=== PATIENT | male | born 1940 | race Caucasian/White ===

== ENCOUNTER 2017-03-16 10:19 | Emergency (ER) | payer MEDICARE, OTHER ==
[2017-03-16] MEDS ORDERED: traMADol HCl 50 MG TAB ONE (11:27)
--- NOTE | 2017-03-16 11:28 | CT ---
CT CHEST WITHOUT CONTRAST: History Chest pain, trauma. FINDINGS: There are acute left rib fractures involving the 5th, 6th, 7th, 8th, and 10th ribs. Old left 8th, 9 th, 10th, and 11th rib fractures are present. No pneumothorax is seen. There is a small left hemot horax with adjacent consolidation/contusion/atelectatic change. There is subsegmental atelectasis i n the right posteromedial lung base. Degenerative changes are present in the thoracic spine without compression fracture or subluxation. The sternum is intact. There are vascular calcifications without evidence of aneurysmal dilatation of the thoracic aorta. Absence of IV contrast reduces the sensitivity of exam, particularly for evaluation of mediastinal, hilar, and vascular structures. No definite mediastinal hematoma is seen. Upper abdominal tomograms demonstrate multiple cysts in the visualized portions of the liver, nonobs tructing 7 mm left renal calculus, and colonic diverticulosis. IMPRESSION: Acute and remote left rib fractures with small left hemothorax and adjacent contusions/atelectatic c hanges. POS: [facility]
== END 2017-03-16 11:36 | disposition home or self-care (01) ==
LOC: BURERS 10:19
DX: S22.39XA Fracture of one rib, unspecified side, initial encounter for closed fracture (principal); E78.5 Hyperlipidemia, unspecified; I10 Essential (primary) hypertension; V89.2XXA Person injured in unspecified motor-vehicle accident, traffic, initial encounter
CPT/HCPCS: 71250

== ENCOUNTER 2019-03-06 20:37 | Emergency (ER) | payer MEDICARE ==
[2019-03-06 21:44] LABS: #Basophils 0.1 thou/uL (0.0-0.2); #Lymphocytes 1.4 thou/uL (1.20-3.40); #Neutrophils 9.1 thou/uL (1.40-6.50); %Basophils 0.6 % (0.0-1.0); %Eosinophils 0.4 % (0.0-10.0); %Lymphocytes 11.9 % (21.0-51.0); %Monocytes 8.6 % (0.0-10.0); %Neutrophils 78.5 % (42.0-75.0); Hemoglobin 16.8 g/dL (14.0-18.0); Mean Corpuscular HGB CONC 33.3 g/dL (32.0-36.0); Mean Corpuscular Hemoglobin 31.5 pg (27.0-31.0); Mean Corpuscular Volume 94.7 fL (78.0-98.0); Mean Platelet Volume 6.3 fL (7.4-10.4); Platelet Count 255 thou/uL (130-400); RBC Distribution Width 11.8 % (11.5-14.5); Red Blood Cell (RBC) Count 5.31 mill/uL (4.70-6.10); White Blood Cell (WBC) Count 11.6 thou/uL (4.8-10.8)
[2019-03-06] MEDS ORDERED: Piperacillin/Tazobactam 4.5 GM VIAL ONE (21:45)
[2019-03-06] MEDS ORDERED: Adacel (T-DAP) 0.5 ML SYRINGE ONE (21:45)
[2019-03-06 21:55] LABS: Anion Gap 15 mmol/L (10-20); BUN (Urea Nitrogen) 28 mg/dL (8.4-25.7); Calc. Creatinine Clearance 0 mL/min (70-130); Carbon Dioxide 24 mmol/L (23-31); Chloride 106 mmol/L (98-107); Estimated GFR-MDRD 54; Glucose 147 mg/dL (83-110); Potassium 4.1 mmol/L (3.5-5.1); Sodium 141 mmol/L (136-145)
--- NOTE | 2019-03-06 22:50 | RAD ---
PORTABLE CHEST 03/06/19 An AP portable film at 2109 is compared with an 02/03/15 study. The heart is normal in size for an AP projection. Prior rib fractures are noted in multiple left ribs . There is probably an old fracture of the right fifth rib anteriorly and perhaps others. The lungs a re currently clear. There are no effusions. IMPRESSION: Old changes but no definite acute findings. POS: HOME
--- NOTE | 2019-03-06 22:52 | RAD ---
LEFT LEG FOUR VIEWS: 03/06/19 Various views were obtained, mainly focused on the upper half of the leg. There is a nondisplaced fra cture of the proximal fibular shaft. The tibia appears intact. Degenerative changes are seen in the knee joint. No large joint effusion was seen at the knee. Arterial calcifications are evident. IMPRESSION: Nondisplaced fracture of the proximal fibular shaft. Code T POS: HOME
== END 2019-03-06 22:15 | disposition short-term general hospital (02) ==
LOC: BURERS 20:37
DX: S82.832B Other fracture of upper and lower end of left fibula, initial encounter for open fracture type I or II (principal); I10 Essential (primary) hypertension; Z79.899 Other long term (current) drug therapy; Z79.82 Long term (current) use of aspirin; W23.0XXA Caught, crushed, jammed, or pinched between moving objects, initial encounter
CPT/HCPCS: 29505; 71045; 80048; 84484; 85025; 90471; 90715; 93005; 96374; J2543

== ENCOUNTER 2020-01-04 09:13 | Outpatient (CLI) | payer MEDICARE ==
--- NOTE | 2020-01-04 14:57 | CT ---
CT OF THE BRAIN WITHOUT CONTRAST: Date: 01/04/2020 Comparison is made with the prior study of 02/03/2015. Generalized atrophy and mild chronic ischemic changes are present. They have advanced slightly since the 2015 scan. No intracranial bleeding, mass, or sign of stroke found. No edema seen. Skull appears normal and the visible paranasal sinuses are clear. IMPRESSION: No acute traumatic findings. POS: HOME
== END 2020-01-04 09:14 | disposition home or self-care (01) ==
LOC: BURCT 09:13
PROVIDERS: ATTEND Psychiatry & Neurology Neurology
DX: G31.1 Senile degeneration of brain, not elsewhere classified (principal)
CPT/HCPCS: 70450

== ENCOUNTER 2020-01-08 12:09 | Emergency (ER) | payer MEDICARE ==
[~2020-01-08 12:09] MED LIST: Iopamidol 370 76% 100 ML VIAL ONE
[2020-01-08 12:42] LABS: PTT 27.6 sec (22.9-36.1); Prothrombin Time 12.8 sec (12.0-14.7)
[2020-01-08 12:50] LABS: #Lymphocytes 1.4 thou/uL (1.20-3.40); #Monocytes 0.4 thou/uL (0.11-0.59); #Neutrophils 4.6 thou/uL (1.40-6.50); %Basophils 0.6 % (0.0-1.0); %Eosinophils 0.5 % (0.0-10.0); %Lymphocytes 22.1 % (21.0-51.0); %Monocytes 6.6 % (0.0-10.0); %Neutrophils 70.2 % (42.0-75.0); Hemoglobin 15.3 g/dL (14.0-18.0); Mean Corpuscular HGB CONC 31.8 g/dL (32.0-36.0); Mean Corpuscular Hemoglobin 30.9 pg (27.0-31.0); Mean Corpuscular Volume 97.1 fL (78.0-98.0); Mean Platelet Volume 6.4 fL (7.4-10.4); Platelet Count 216 thou/uL (130-400); RBC Distribution Width 11.9 % (11.5-14.5); Red Blood Cell (RBC) Count 4.94 mill/uL (4.70-6.10); White Blood Cell (WBC) Count 6.5 thou/uL (4.8-10.8)
[2020-01-08 12:52] LABS: ALT (SGPT) 37 U/L (8-55); AST (SGOT) 24 U/L (5-34); Albumin 4.1 g/dL (3.4-4.8); Alkaline Phosphatase 37 U/L (40-110); Anion Gap 11 mmol/L (10-20); BUN (Urea Nitrogen) 25 mg/dL (8.4-25.7); Bilirubin, Total 0.7 mg/dL (0.2-1.2); Calc. Creatinine Clearance 0 mL/min (70-130); Calcium 9.7 mg/dL (7.8-10.44); Carbon Dioxide 29 mmol/L (23-31); Chloride 103 mmol/L (98-107); Estimated GFR-MDRD 61; Globulin 2.8 g/dL (2.4-3.5); Glucose 149 mg/dL (83-110); Potassium 4.1 mmol/L (3.5-5.1); Protein, Total 6.9 g/dL (5.8-8.1); Sodium 139 mmol/L (136-145)
[2020-01-08] MEDS ORDERED: Meclizine HCl 25 MG TAB ONE (13:02)
[2020-01-08] MEDS ORDERED: Ondansetron ODT 4 MG TAB ONE ×2 (13:14→15:22)
[2020-01-08 14:00] LABS: Bilirubin Negative (Negative); Blood, Urine Negative (Negative); Clarity Clear (Clear); Glucose, Urine (Dipstick) Negative (Negative); Ketone, Urine Negative (Negative); Leukocyte Negative (Negative); Nitrite Negative (Negative); Protein, Urine (Dipstick) Negative (Neg-Trace); Specific Gravity, Urine 1.025 (1.005-1.030); Urobilinogen 0.2 mg/dL (Less than 2); pH, Urine 5.5 (5.0-9.0)
[2020-01-08] MEDS ORDERED: diphenhydrAMINE 12.5 MG/5 ML UDCUP ONE (14:01)
[2020-01-08] MEDS ORDERED: diphenhydrAMINE 50 MG/ML VIAL ONE (14:02)
--- NOTE | 2020-01-08 15:23 | CT ---
EXAM: CT angiogram head and neck with IV contrast and 3-D reconstructions PROVIDED CLINICAL HISTORY: Dizziness with nausea and vomiting. COMPARISON: Noncontrast CT head on 01/08/2020 at 1311 hours. FINDINGS: Vascular calcifications are seen in the aortic arch and at the origin of the great vessels. There is a normal arrangement of the great vessels at the aortic arch which are patent. The origin of the right common carotid artery as well as the right subclavian artery are obscured due to dense contrast within the veins. Remainder of the right common carotid artery is patent. The left common carotid artery as well as left subclavian artery are patent. Vascular calcifications are seen at the left carotid artery bifurcation, the left internal and rfid systems architect al carotid artery are patent. Dense vascular calcifications are also seen involving the distal right common carotid artery as well as involving the origin of the right internal carotid artery. Den se vascular calcification in the distal right common carotid artery and involving the origin of the internal carotid artery precludes evaluation of the origin of the right internal carotid artery, and the degree of narrowing in this region is unable to be accurately assessed. However, there is likely moderate or severe degree of narrowing. The right vertebral artery is patent and dominant. The left vertebral artery is very small in caliber , and there is suggestion of short segment occlusion of the left vertebral artery at the C1-2 level. The basilar artery is small in caliber. There are type origins of the bilateral posterior cereb ral arteries which appear patent. The bilateral anterior cerebral arteries are patent. Anterior communicating artery is visualized and patent. There is a focal narrowing involving the distal aspect of the A1 segment of the right anterior cerebral artery, and the A1 segment right anterior cerebral artery is smaller in size compar ed to the left. Bilateral middle cerebral arteries are patent. There is no branch occlusion seen. No aneurysm is seen within the limitations of the technique of this exam. Visualized upper lung zones are clear. There are hypodense nodules seen scattered throughout each lobe of the thyroid gland with largest nod ule in the right lobe of thyroid gland measuring 1.2 cm. These nodules are unable to be further characterized on this examination but did appear to be present on a prior CT thorax in 2017. Degenerative changes are seen in the cervical spine. Mucosal thickening as well as mucous retention c ysts are seen in the left maxillary antrum. [place] lenses are not visualized. There are mastoid effusions seen on the left. IMPRESSION: 1. Dense atherosclerotic vascular calcification at the origin the right internal carotid artery, and the degree of narrowing at this level cannot be accurately assessed; although, there is presumably moderate to severe degree of narrowing at the origin of the right internal carotid artery. 2. Left internal carotid artery is patent. 3. 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 Right vertebral artery is patent. 4. No significant focal narrowing or branch occlusion is seen involving the [place] of [place] or poste rior circulation.
--- NOTE | 2020-01-08 16:56 | CT ---
CT OF THE BRAIN 01/08/20 COMPARISON: Comparison is made with the 01/03 study. As before, the ventricles are normal in size for age and atrophy. Chronic ischemic changes are seen throughout the brain and appear little different. There was no sign of acute stroke, though MRI would be more sensitive to such. There is no bleeding, mass or edema. A retention cyst is noted in the cedric or of the left maxillary sinus. A small amount of fluid is seen in some of the left mastoid air cells near the mastoid tip. The skull itself appears intact. IMPRESSION: Atrophy and chronic ischemic changes with no definite acute findings compared to the prior study. Report called to Sabrina in ER at 1322 on 01/08/20. POS: HOME
== END 2020-01-08 16:59 | disposition short-term general hospital (02) ==
LOC: BURERS 12:09
DX: I65.02 Occlusion and stenosis of left vertebral artery (principal); R11.2 Nausea with vomiting, unspecified; I10 Essential (primary) hypertension; Z79.82 Long term (current) use of aspirin; Z79.899 Other long term (current) drug therapy
CPT/HCPCS: 0042T; 70450; 70496; 80053; 81003; 84484; 85025; 85610; 85730; 93005; 94760; 96361; 96374; 99285; J1200; Q0162; Q0163; Q9967

== ENCOUNTER 2020-12-22 20:58 | Emergency (ER) | payer MEDICARE ==
[2020-12-22 21:24] LABS: #Basophils 0.1 thou/uL (0.0-0.2); #Eosinphils 0.2 thou/uL (0.0-0.7); #Lymphocytes 2.2 thou/uL (1.20-3.40); #Monocytes 0.6 thou/uL (0.11-0.59); #Neutrophils 2.3 thou/uL (1.40-6.50); %Basophils 1.2 % (0.0-1.0); %Eosinophils 3.1 % (0.0-10.0); %Lymphocytes 41.5 % (21.0-51.0); %Monocytes 11.7 % (0.0-10.0); %Neutrophils 42.6 % (42.0-75.0); Hemoglobin 15.8 g/dL (14.0-18.0); Mean Corpuscular HGB CONC 32.8 g/dL (32.0-36.0); Mean Corpuscular Volume 97.5 fL (78.0-98.0); Mean Platelet Volume 6.6 fL (7.4-10.4); Platelet Count 228 thou/uL (130-400); RBC Distribution Width 11.7 % (11.5-14.5); Red Blood Cell (RBC) Count 4.94 mill/uL (4.70-6.10); White Blood Cell (WBC) Count 5.4 thou/uL (4.8-10.8)
[2020-12-22 21:33] LABS: INR-International Normal Ratio 0.9; Prothrombin Time 12.6 sec (12.0-14.7)
[2020-12-22 21:34] LABS: PTT 31.1 sec (22.9-36.1)
[2020-12-22 21:43] LABS: ALT (SGPT) 23 U/L (8-55); AST (SGOT) 25 U/L (5-34); Alkaline Phosphatase 35 U/L (40-110); Anion Gap 16 mmol/L (10-20); BUN (Urea Nitrogen) 23 mg/dL (8.4-25.7); Bilirubin, Total 0.4 mg/dL (0.2-1.2); CK (CPK) 83 U/L (30-200); Calc. Creatinine Clearance 0 mL/min (70-130); Calcium 9.6 mg/dL (7.8-10.44); Carbon Dioxide 24 mmol/L (23-31); Chloride 106 mmol/L (98-107); Globulin 2.8 g/dL (2.4-3.5); Glucose 104 mg/dL (83-110); Potassium 3.9 mmol/L (3.5-5.1); Protein, Total 6.8 g/dL (5.8-8.1); Sodium 142 mmol/L (136-145)
== END 2020-12-22 21:56 | disposition short-term general hospital (02) ==
LOC: BURERS 20:58
DX: I63.9 Cerebral infarction, unspecified (principal); I10 Essential (primary) hypertension; Z79.82 Long term (current) use of aspirin; Z79.899 Other long term (current) drug therapy
CPT/HCPCS: 36415; 36416; 70450; 70496; 80053; 82550; 84484; 85025; 85610; 85730; 93005; Q9967

== ENCOUNTER 2021-02-26 05:14 | Emergency (ER) | payer MEDICARE ==
[2021-02-26 06:20] LABS: #Basophils 0.1 thou/uL (0.0-0.2); #Eosinphils 0.2 thou/uL (0.0-0.7); #Lymphocytes 1.9 thou/uL (1.20-3.40); #Monocytes 0.5 thou/uL (0.11-0.59); #Neutrophils 2.6 thou/uL (1.40-6.50); %Basophils 0.9 % (0.0-1.0); %Eosinophils 4.4 % (0.0-10.0); %Lymphocytes 35.8 % (21.0-51.0); %Monocytes 10.2 % (0.0-10.0); %Neutrophils 48.7 % (42.0-75.0); Hemoglobin 14.3 g/dL (14.0-18.0); Mean Corpuscular HGB CONC 33.5 g/dL (32.0-36.0); Mean Corpuscular Hemoglobin 31.7 pg (27.0-31.0); Mean Corpuscular Volume 94.8 fL (78.0-98.0); Mean Platelet Volume 6.4 fL (7.4-10.4); Platelet Count 219 thou/uL (130-400); RBC Distribution Width 12.9 % (11.5-14.5); White Blood Cell (WBC) Count 5.3 thou/uL (4.8-10.8)
[2021-02-26 06:21] LABS: ALT (SGPT) 21 U/L (8-55); AST (SGOT) 20 U/L (5-34); Albumin 3.7 g/dL (3.4-4.8); Alkaline Phosphatase 38 U/L (40-110); Anion Gap 10 mmol/L (10-20); BUN (Urea Nitrogen) 26 mg/dL (8.4-25.7); Bilirubin, Total 0.8 mg/dL (0.2-1.2); Calc. Creatinine Clearance 0 mL/min (70-130); Calcium 9.5 mg/dL (7.8-10.44); Carbon Dioxide 29 mmol/L (23-31); Chloride 107 mmol/L (98-107); Globulin 2.7 g/dL (2.4-3.5); Glucose 107 mg/dL (83-110); Protein, Total 6.4 g/dL (5.8-8.1); Sodium 142 mmol/L (136-145)
[2021-02-26 06:42] LABS: Prothrombin Time 13.7 sec (12.0-14.7)
[2021-02-26 06:46] LABS: Bilirubin Negative (Negative); Blood, Urine Large (Negative); Clarity Clear (Clear); Glucose, Urine (Dipstick) Negative (Negative); Ketone, Urine Negative (Negative); Leukocyte Negative (Negative); Nitrite Negative (Negative); Protein, Urine (Dipstick) 30 mg/dL (Neg-Trace); Urobilinogen 0.2 mg/dL (Less than 2); pH, Urine 5.5 (5.0-9.0)
[2021-02-26 06:56] LABS: Specific Gravity, Urine 1.026 (1.002-1.036)
[2021-02-26 06:59] LABS: Bacteria/HPF 1+ HPF (None Seen); Squamous Epithelial 0-3 HPF (0-3); WBC/HPF 0-3 HPF (0-3)
[2021-02-26] MEDS ORDERED: Iopamidol 370 76% 100 ML VIAL ONE (16:05)
== END 2021-02-26 08:08 | disposition home or self-care (01) ==
LOC: BURERS 05:14
DX: R31.0 Gross hematuria (principal); M54.5 Low back pain; I10 Essential (primary) hypertension; E78.5 Hyperlipidemia, unspecified; Z86.73 Personal history of transient ischemic attack (TIA), and cerebral infarction without residual deficits; Z79.82 Long term (current) use of aspirin; Z79.899 Other long term (current) drug therapy
CPT/HCPCS: 36415; 74177; 80053; 80307; 81003; 81015; 82274; 83605; 84484; 85025; 85610; 85730; 87086; Q9967

== ENCOUNTER 2021-03-30 18:03 | Emergency (ER) | payer OTHER, MEDICARE ==
[2021-03-30] MEDS ORDERED: HYDROcodone/Acetaminophen 5/325 mg Tablet ONE (19:02)
== END 2021-03-30 19:26 | disposition home or self-care (01) ==
LOC: BURERS 18:03
DX: S32.019A Unspecified fracture of first lumbar vertebra, initial encounter for closed fracture (principal); S32.029A Unspecified fracture of second lumbar vertebra, initial encounter for closed fracture; S32.039A Unspecified fracture of third lumbar vertebra, initial encounter for closed fracture; S32.049A Unspecified fracture of fourth lumbar vertebra, initial encounter for closed fracture; S80.11XA Contusion of right lower leg, initial encounter; W01.10XA Fall on same level from slipping, tripping and stumbling with subsequent striking against unspecified object, initial encounter; Z79.899 Other long term (current) drug therapy; Z79.82 Long term (current) use of aspirin; I10 Essential (primary) hypertension; E78.5 Hyperlipidemia, unspecified; Z86.73 Personal history of transient ischemic attack (TIA), and cerebral infarction without residual deficits
CPT/HCPCS: 72131

== ENCOUNTER 2021-04-07 16:57 | Inpatient (IN) | payer MEDICARE ==
[2021-04-08] MEDS: traMADol HCl 50 MG TAB PO PRN (06:37)
[2021-04-08] MEDS ORDERED: Finasteride 5 MG TAB PO SCH (09:00)
[2021-04-08] MEDS ORDERED: Folic Acid 1 MG TAB PO SCH (09:00)
[2021-04-08] MEDS ORDERED: Polyethylene Glycol 3350 17 GM Packet PO SCH (09:00)
[2021-04-08] MEDS ORDERED: [UNRECOGNIZED DRUG - OTHER] IM SCH (09:00)
[2021-04-08] MEDS ORDERED: Aspirin 81 mg Enteric Coated Tablet PO SCH (09:00)
[2021-04-08] MEDS ORDERED: Non-Formulary Item 1 EACH (Mecobalamin [B12 Active] 1,000 MCG Tab.Chew) PO SCH (09:00)
[2021-04-08] MEDS ORDERED: TESTOSTERONE CYPIONATE IM SCH (09:00)
[2021-04-08] MEDS ORDERED: Non-Formulary Item 1 EACH (Vitamin B Complex [B Complex] 1 TABLET Tablet) PO SCH (09:00)
[2021-04-08] MEDS ORDERED: [UNRECOGNIZED DRUG - OTHER] PO SCH (09:00)
[2021-04-08 10:00] LABS: #Basophils 0.1 thou/uL (0.0-0.2); #Eosinphils 0.3 thou/uL (0.0-0.7); #Lymphocytes 1.2 thou/uL (1.20-3.40); #Monocytes 0.7 thou/uL (0.11-0.59); #Neutrophils 4.3 thou/uL (1.40-6.50); %Basophils 0.9 % (0.0-1.0); %Eosinophils 4.4 % (0.0-10.0); %Monocytes 10.7 % (0.0-10.0); Hemoglobin 11.4 g/dL (14.0-18.0); Mean Corpuscular HGB CONC 32.8 g/dL (32.0-36.0); Mean Corpuscular Hemoglobin 31.3 pg (27.0-31.0); Mean Corpuscular Volume 95.5 fL (78.0-98.0); Mean Platelet Volume 5.9 fL (7.4-10.4); Platelet Count 248 thou/uL (130-400); RBC Distribution Width 11.6 % (11.5-14.5); Red Blood Cell (RBC) Count 3.63 mill/uL (4.70-6.10); White Blood Cell (WBC) Count 6.5 thou/uL (4.8-10.8)
[2021-04-08 10:16] LABS: ALT (SGPT) 19 U/L (8-55); AST (SGOT) 16 U/L (5-34); Albumin 3.2 g/dL (3.4-4.8); Alkaline Phosphatase 42 U/L (40-110); Anion Gap 12 mmol/L (10-20); BUN (Urea Nitrogen) 22 mg/dL (8.4-25.7); Bilirubin, Total 0.6 mg/dL (0.2-1.2); Calc. Creatinine Clearance 0 mL/min (70-130); Calcium 9.3 mg/dL (7.8-10.44); Carbon Dioxide 24 mmol/L (23-31); Chloride 106 mmol/L (98-107); Globulin 2.6 g/dL (2.4-3.5); Glucose 113 mg/dL (83-110); Potassium 4.4 mmol/L (3.5-5.1); Protein, Total 5.8 g/dL (5.8-8.1); Sodium 138 mmol/L (136-145)
[2021-04-08] MEDS: Lisinopril 20 MG TAB PO SCH ×2 (10:39→20:29)
[2021-04-08] MEDS: Finasteride 5 MG TAB PO SCH (10:40)
[2021-04-08] MEDS: Multivit, Therapeutic 1 TAB PO SCH (10:40)
[2021-04-08] MEDS: Vit A,C & E/Lutein/Minerals Tablet PO SCH (10:41)
[2021-04-08] MEDS: Docusate 100 MG CAP PO SCH (10:41)
[2021-04-08] MEDS: Folic Acid 1 MG TAB PO SCH (10:42)
[2021-04-08] MEDS: Aspirin 81 mg Enteric Coated Tablet PO SCH (10:43)
[2021-04-08] MEDS: Cyanocobalamin (Vitamin B-12) 1,000 MCG TAB PO SCH (10:43)
[2021-04-08] MEDS: Tamsulosin HCl 0.4 MG CAP PO SCH ×2 (10:44→20:29)
[2021-04-08] MEDS: Stress 600 With Zinc 1 TAB PO SCH (10:44)
[2021-04-08] MEDS: Lidocaine 5% Patch TD SCH (10:45)
[2021-04-08] MEDS: Polyethylene Glycol 3350 17 GM Packet PO SCH (10:46)
[2021-04-08] MEDS ORDERED: FLU VACC QS2021-22(65YR UP)/PF 240 MCG/0.7 ML SYRINGE IM ONE (12:00)
[2021-04-08] MEDS: TESTOSTERONE CYPIONATE IM SCH (14:55)
[2021-04-08] MEDS: Rosuvastatin 10 MG TAB PO SCH (20:28)
[2021-04-08] MEDS: Ketotifen Fumarate 0.025% Ophth Soln 5 ml Bottle EA EYE SCH (20:29)
[2021-04-08] MEDS ORDERED: Non-Formulary Item 1 EACH (Rosuvastatin [Crestor] 20 MG Tab) PO SCH (21:00)
[2021-04-08] MEDS: Transdermal Patch Removal TOP SCH (23:34)
[2021-04-09 06:03] VITALS: BMI 25.8
[2021-04-09] MEDS: traMADol HCl 50 MG TAB PO PRN ×2 (09:05→18:01)
[2021-04-09] MEDS: Acetaminophen 325 MG TAB PO PRN ×2 (09:06→22:59)
[2021-04-09] MEDS: Lisinopril 20 MG TAB PO SCH ×2 (09:08→20:38)
[2021-04-09] MEDS: Cyanocobalamin (Vitamin B-12) 1,000 MCG TAB PO SCH (09:09)
[2021-04-09] MEDS: Multivit, Therapeutic 1 TAB PO SCH (09:09)
[2021-04-09] MEDS: Finasteride 5 MG TAB PO SCH (09:09)
[2021-04-09] MEDS: Stress 600 With Zinc 1 TAB PO SCH (09:09)
[2021-04-09] MEDS: Vit A,C & E/Lutein/Minerals Tablet PO SCH (09:09)
[2021-04-09] MEDS: Docusate 100 MG CAP PO SCH (09:10)
[2021-04-09] MEDS: Aspirin 81 mg Enteric Coated Tablet PO SCH (09:10)
[2021-04-09] MEDS: Folic Acid 1 MG TAB PO SCH (09:11)
[2021-04-09] MEDS: Ketotifen Fumarate 0.025% Ophth Soln 5 ml Bottle EA EYE SCH ×2 (09:12→20:39)
[2021-04-09] MEDS: Polyethylene Glycol 3350 17 GM Packet PO SCH (09:12)
[2021-04-09] MEDS: Lidocaine 5% Patch TD SCH (09:12)
[2021-04-09] MEDS: Tamsulosin HCl 0.4 MG CAP PO SCH ×2 (09:13→20:38)
[2021-04-09] MEDS: Rosuvastatin 10 MG TAB PO SCH (20:38)
[2021-04-09] MEDS: Transdermal Patch Removal TOP SCH (21:05)
[2021-04-10] MEDS: Tamsulosin HCl 0.4 MG CAP PO SCH ×2 (09:49→21:04)
[2021-04-10] MEDS: Multivit, Therapeutic 1 TAB PO SCH (09:49)
[2021-04-10] MEDS: Folic Acid 1 MG TAB PO SCH (09:49)
[2021-04-10] MEDS: Aspirin 81 mg Enteric Coated Tablet PO SCH (09:49)
[2021-04-10] MEDS: Vit A,C & E/Lutein/Minerals Tablet PO SCH (09:50)
[2021-04-10] MEDS: Lisinopril 20 MG TAB PO SCH ×2 (09:50→21:04)
[2021-04-10] MEDS: Finasteride 5 MG TAB PO SCH (09:50)
[2021-04-10] MEDS: Docusate 100 MG CAP PO SCH (09:50)
[2021-04-10] MEDS: Cyanocobalamin (Vitamin B-12) 1,000 MCG TAB PO SCH (09:50)
[2021-04-10] MEDS: Stress 600 With Zinc 1 TAB PO SCH (09:50)
[2021-04-10] MEDS: Lidocaine 5% Patch TD SCH (09:51)
[2021-04-10] MEDS: Polyethylene Glycol 3350 17 GM Packet PO SCH (09:51)
[2021-04-10] MEDS: Ketotifen Fumarate 0.025% Ophth Soln 5 ml Bottle EA EYE SCH ×2 (09:51→21:07)
[2021-04-10] MEDS: traMADol HCl 50 MG TAB PO PRN ×2 (13:38→22:15)
[2021-04-10] MEDS: Rosuvastatin 10 MG TAB PO SCH (21:04)
[2021-04-10] MEDS: Transdermal Patch Removal TOP SCH (21:08)
[2021-04-11 05:22] LABS: Hemoglobin 11.4 g/dL (14.0-18.0); Platelet Count 256 thou/uL (130-400)
[2021-04-11] MEDS: traMADol HCl 50 MG TAB PO PRN ×2 (10:53→22:10)
[2021-04-11] MEDS: Polyethylene Glycol 3350 17 GM Packet PO SCH ×2 (10:54→11:31)
[2021-04-11] MEDS: Ketotifen Fumarate 0.025% Ophth Soln 5 ml Bottle EA EYE SCH ×2 (10:54→21:20)
[2021-04-11] MEDS: Stress 600 With Zinc 1 TAB PO SCH (10:55)
[2021-04-11] MEDS: Multivit, Therapeutic 1 TAB PO SCH (10:55)
[2021-04-11] MEDS: Vit A,C & E/Lutein/Minerals Tablet PO SCH (10:56)
[2021-04-11] MEDS: Aspirin 81 mg Enteric Coated Tablet PO SCH (10:56)
[2021-04-11] MEDS: Finasteride 5 MG TAB PO SCH (10:56)
[2021-04-11] MEDS: Docusate 100 MG CAP PO SCH (10:57)
[2021-04-11] MEDS: Tamsulosin HCl 0.4 MG CAP PO SCH ×2 (10:57→21:22)
[2021-04-11] MEDS: Lisinopril 20 MG TAB PO SCH ×2 (10:57→21:19)
[2021-04-11] MEDS: Cyanocobalamin (Vitamin B-12) 1,000 MCG TAB PO SCH (10:57)
[2021-04-11] MEDS: Folic Acid 1 MG TAB PO SCH (10:57)
[2021-04-11] MEDS: Lidocaine 5% Patch TD SCH (10:58)
[2021-04-11 20:37] LABS: SARS-CoV-2 PCR by NAA Not Detected (NotDetected)
[2021-04-11] MEDS: Rosuvastatin 10 MG TAB PO SCH (21:19)
[2021-04-11] MEDS: Transdermal Patch Removal TOP SCH (21:43)
[2021-04-12] MEDS: traMADol HCl 50 MG TAB PO PRN ×2 (08:48→20:11)
[2021-04-12] MEDS: Ketotifen Fumarate 0.025% Ophth Soln 5 ml Bottle EA EYE SCH ×2 (08:49→20:12)
[2021-04-12] MEDS: Lidocaine 5% Patch TD SCH (08:50)
[2021-04-12] MEDS: Docusate 100 MG CAP PO SCH (08:50)
[2021-04-12] MEDS: Lisinopril 20 MG TAB PO SCH ×2 (08:51→20:11)
[2021-04-12] MEDS: Folic Acid 1 MG TAB PO SCH (08:51)
[2021-04-12] MEDS: Multivit, Therapeutic 1 TAB PO SCH (08:51)
[2021-04-12] MEDS: Stress 600 With Zinc 1 TAB PO SCH (08:51)
[2021-04-12] MEDS: Vit A,C & E/Lutein/Minerals Tablet PO SCH (08:51)
[2021-04-12] MEDS: Tamsulosin HCl 0.4 MG CAP PO SCH ×2 (08:51→20:11)
[2021-04-12] MEDS: Cyanocobalamin (Vitamin B-12) 1,000 MCG TAB PO SCH (08:51)
[2021-04-12] MEDS: Aspirin 81 mg Enteric Coated Tablet PO SCH (08:51)
[2021-04-12] MEDS: Polyethylene Glycol 3350 17 GM Packet PO SCH (08:52)
[2021-04-12] MEDS: Finasteride 5 MG TAB PO SCH (08:53)
[2021-04-12] MEDS ORDERED: Lorazepam 2 MG/ML VIAL ONE (16:41)
[2021-04-12] MEDS: Rosuvastatin 10 MG TAB PO SCH (20:11)
[2021-04-12] MEDS: Transdermal Patch Removal TOP SCH (20:30)
[2021-04-13] MEDS: traMADol HCl 50 MG TAB PO PRN ×3 (05:36→21:21)
[2021-04-13] MEDS: Ketotifen Fumarate 0.025% Ophth Soln 5 ml Bottle EA EYE SCH ×2 (09:40→21:20)
[2021-04-13] MEDS: Lidocaine 5% Patch TD SCH (09:40)
[2021-04-13] MEDS: Finasteride 5 MG TAB PO SCH (09:41)
[2021-04-13] MEDS: Aspirin 81 mg Enteric Coated Tablet PO SCH (09:43)
[2021-04-13] MEDS: Lisinopril 20 MG TAB PO SCH ×2 (09:43→21:22)
[2021-04-13] MEDS: Vit A,C & E/Lutein/Minerals Tablet PO SCH (09:43)
[2021-04-13] MEDS: Cyanocobalamin (Vitamin B-12) 1,000 MCG TAB PO SCH (09:43)
[2021-04-13] MEDS: Stress 600 With Zinc 1 TAB PO SCH (09:43)
[2021-04-13] MEDS: Folic Acid 1 MG TAB PO SCH (09:45)
[2021-04-13] MEDS: Tamsulosin HCl 0.4 MG CAP PO SCH ×2 (09:45→21:21)
[2021-04-13] MEDS: Multivit, Therapeutic 1 TAB PO SCH (09:45)
[2021-04-13] MEDS: Docusate 100 MG CAP PO SCH (09:45)
[2021-04-13] MEDS: Polyethylene Glycol 3350 17 GM Packet PO SCH (09:46)
[2021-04-13] MEDS: Rosuvastatin 10 MG TAB PO SCH (21:20)
[2021-04-13] MEDS: Transdermal Patch Removal TOP SCH (23:47)
[2021-04-14] MEDS: Polyethylene Glycol 3350 17 GM Packet PO SCH (08:37)
[2021-04-14] MEDS: Ketotifen Fumarate 0.025% Ophth Soln 5 ml Bottle EA EYE SCH ×2 (08:37→20:09)
[2021-04-14] MEDS: Docusate 100 MG CAP PO SCH (08:39)
[2021-04-14] MEDS: Folic Acid 1 MG TAB PO SCH (08:39)
[2021-04-14] MEDS: Stress 600 With Zinc 1 TAB PO SCH (08:39)
[2021-04-14] MEDS: Vit A,C & E/Lutein/Minerals Tablet PO SCH (08:39)
[2021-04-14] MEDS: Tamsulosin HCl 0.4 MG CAP PO SCH ×2 (08:40→20:09)
[2021-04-14] MEDS: Cyanocobalamin (Vitamin B-12) 1,000 MCG TAB PO SCH (08:40)
[2021-04-14] MEDS: Finasteride 5 MG TAB PO SCH (08:40)
[2021-04-14] MEDS: Multivit, Therapeutic 1 TAB PO SCH (08:40)
[2021-04-14] MEDS: Aspirin 81 mg Enteric Coated Tablet PO SCH (08:40)
[2021-04-14] MEDS: Lisinopril 20 MG TAB PO SCH ×2 (08:41→20:09)
[2021-04-14] MEDS: Lidocaine 5% Patch TD SCH (08:42)
[2021-04-14 09:10] LABS: Hemoglobin 12.9 g/dL (14.0-18.0); Platelet Count 291 thou/uL (130-400)
[2021-04-14] MEDS: traMADol HCl 50 MG TAB PO PRN ×3 (11:19→20:31)
[2021-04-14] MEDS: Rosuvastatin 10 MG TAB PO SCH (20:09)
[2021-04-14] MEDS: Transdermal Patch Removal TOP SCH (20:10)
[2021-04-15] MEDS: Docusate 100 MG CAP PO SCH (08:39)
[2021-04-15] MEDS: Aspirin 81 mg Enteric Coated Tablet PO SCH (08:39)
[2021-04-15] MEDS: Vit A,C & E/Lutein/Minerals Tablet PO SCH (08:39)
[2021-04-15] MEDS: Lidocaine 5% Patch TD SCH (08:39)
[2021-04-15] MEDS: Ketotifen Fumarate 0.025% Ophth Soln 5 ml Bottle EA EYE SCH ×2 (08:39→20:28)
[2021-04-15] MEDS: Cyanocobalamin (Vitamin B-12) 1,000 MCG TAB PO SCH (08:40)
[2021-04-15] MEDS: Folic Acid 1 MG TAB PO SCH (08:40)
[2021-04-15] MEDS: Finasteride 5 MG TAB PO SCH (08:40)
[2021-04-15] MEDS: Tamsulosin HCl 0.4 MG CAP PO SCH ×2 (08:40→20:27)
[2021-04-15] MEDS: Stress 600 With Zinc 1 TAB PO SCH (08:40)
[2021-04-15] MEDS: Lisinopril 20 MG TAB PO SCH ×2 (08:40→20:27)
[2021-04-15] MEDS: Multivit, Therapeutic 1 TAB PO SCH (08:40)
[2021-04-15] MEDS: Polyethylene Glycol 3350 17 GM Packet PO SCH (09:30)
[2021-04-15] MEDS: TESTOSTERONE CYPIONATE IM SCH (16:41)
[2021-04-15] MEDS: traMADol HCl 50 MG TAB PO PRN (20:26)
[2021-04-15] MEDS: Rosuvastatin 10 MG TAB PO SCH (20:27)
[2021-04-15] MEDS: Transdermal Patch Removal TOP SCH (20:28)
[2021-04-16] MEDS: traMADol HCl 50 MG TAB PO PRN ×3 (05:19→23:41)
[2021-04-16] MEDS: Lidocaine 5% Patch TD SCH (08:55)
[2021-04-16] MEDS: Finasteride 5 MG TAB PO SCH (08:56)
[2021-04-16] MEDS: Lisinopril 20 MG TAB PO SCH ×2 (08:56→20:45)
[2021-04-16] MEDS: Aspirin 81 mg Enteric Coated Tablet PO SCH (08:56)
[2021-04-16] MEDS: Polyethylene Glycol 3350 17 GM Packet PO SCH (08:57)
[2021-04-16] MEDS: Multivit, Therapeutic 1 TAB PO SCH (08:57)
[2021-04-16] MEDS: Tamsulosin HCl 0.4 MG CAP PO SCH ×2 (08:57→20:45)
[2021-04-16] MEDS: Folic Acid 1 MG TAB PO SCH (08:57)
[2021-04-16] MEDS: Docusate 100 MG CAP PO SCH (08:57)
[2021-04-16] MEDS: Vit A,C & E/Lutein/Minerals Tablet PO SCH (08:57)
[2021-04-16] MEDS: Stress 600 With Zinc 1 TAB PO SCH (08:57)
[2021-04-16] MEDS: Cyanocobalamin (Vitamin B-12) 1,000 MCG TAB PO SCH (08:57)
[2021-04-16] MEDS: Rosuvastatin 10 MG TAB PO SCH (20:45)
[2021-04-16] MEDS: Transdermal Patch Removal TOP SCH (22:22)
[2021-04-17 05:36] LABS: Platelet Count 260 thou/uL (130-400)
[2021-04-17] MEDS: Polyethylene Glycol 3350 17 GM Packet PO SCH (09:47)
[2021-04-17] MEDS: Vit A,C & E/Lutein/Minerals Tablet PO SCH (09:48)
[2021-04-17] MEDS: Stress 600 With Zinc 1 TAB PO SCH (09:48)
[2021-04-17] MEDS: Cyanocobalamin (Vitamin B-12) 1,000 MCG TAB PO SCH (09:48)
[2021-04-17] MEDS: Multivit, Therapeutic 1 TAB PO SCH (09:48)
[2021-04-17] MEDS: Aspirin 81 mg Enteric Coated Tablet PO SCH (09:48)
[2021-04-17] MEDS: Lidocaine 5% Patch TD SCH (09:48)
[2021-04-17] MEDS: Lisinopril 20 MG TAB PO SCH ×2 (09:48→20:49)
[2021-04-17] MEDS: Tamsulosin HCl 0.4 MG CAP PO SCH ×2 (09:49→20:49)
[2021-04-17] MEDS: Docusate 100 MG CAP PO SCH (09:49)
[2021-04-17] MEDS: Finasteride 5 MG TAB PO SCH (09:49)
[2021-04-17] MEDS: Folic Acid 1 MG TAB PO SCH (09:49)
[2021-04-17] MEDS: Acetaminophen 325 MG TAB PO PRN ×2 (12:39→22:37)
[2021-04-17] MEDS: Rosuvastatin 10 MG TAB PO SCH (20:49)
[2021-04-17] MEDS: Transdermal Patch Removal TOP SCH (20:49)
[2021-04-17] MEDS: traMADol HCl 50 MG TAB PO PRN (22:37)
[2021-04-18] MEDS: Vit A,C & E/Lutein/Minerals Tablet PO SCH (09:50)
[2021-04-18] MEDS: Lidocaine 5% Patch TD SCH (09:50)
[2021-04-18] MEDS: Aspirin 81 mg Enteric Coated Tablet PO SCH (09:50)
[2021-04-18] MEDS: Polyethylene Glycol 3350 17 GM Packet PO SCH ×2 (09:50→09:55)
[2021-04-18] MEDS: Folic Acid 1 MG TAB PO SCH (09:50)
[2021-04-18] MEDS: Finasteride 5 MG TAB PO SCH (09:50)
[2021-04-18] MEDS: Tamsulosin HCl 0.4 MG CAP PO SCH ×2 (09:51→20:53)
[2021-04-18] MEDS: Stress 600 With Zinc 1 TAB PO SCH (09:51)
[2021-04-18] MEDS: Lisinopril 20 MG TAB PO SCH ×2 (09:51→20:53)
[2021-04-18] MEDS: Docusate 100 MG CAP PO SCH (09:51)
[2021-04-18] MEDS: Multivit, Therapeutic 1 TAB PO SCH (09:52)
[2021-04-18] MEDS: Cyanocobalamin (Vitamin B-12) 1,000 MCG TAB PO SCH (09:52)
[2021-04-18] MEDS: Rosuvastatin 10 MG TAB PO SCH (20:53)
[2021-04-18] MEDS: Transdermal Patch Removal TOP SCH (20:53)
[2021-04-18] MEDS: traMADol HCl 50 MG TAB PO PRN (21:06)
[2021-04-19] MEDS: Polyethylene Glycol 3350 17 GM Packet PO SCH (10:20)
[2021-04-19] MEDS: Vit A,C & E/Lutein/Minerals Tablet PO SCH (10:20)
[2021-04-19] MEDS: Stress 600 With Zinc 1 TAB PO SCH (10:20)
[2021-04-19] MEDS: Aspirin 81 mg Enteric Coated Tablet PO SCH (10:21)
[2021-04-19] MEDS: Cyanocobalamin (Vitamin B-12) 1,000 MCG TAB PO SCH (10:21)
[2021-04-19] MEDS: Finasteride 5 MG TAB PO SCH (10:21)
[2021-04-19] MEDS: Multivit, Therapeutic 1 TAB PO SCH (10:21)
[2021-04-19] MEDS: Tamsulosin HCl 0.4 MG CAP PO SCH ×2 (10:21→20:37)
[2021-04-19] MEDS: Folic Acid 1 MG TAB PO SCH (10:21)
[2021-04-19] MEDS: Lisinopril 20 MG TAB PO SCH ×2 (10:21→20:38)
[2021-04-19] MEDS: Lidocaine 5% Patch TD SCH (10:22)
[2021-04-19] MEDS: Docusate 100 MG CAP PO SCH (10:22)
[2021-04-19] MEDS: Rosuvastatin 10 MG TAB PO SCH (20:37)
[2021-04-19] MEDS: traMADol HCl 50 MG TAB PO PRN (20:38)
[2021-04-19] MEDS: Transdermal Patch Removal TOP SCH (21:02)
[2021-04-19 22:21] LABS: SARS-CoV-2 PCR by NAA Not Detected (NotDetected)
[2021-04-20 05:19] LABS: Hemoglobin 11.7 g/dL (14.0-18.0); Platelet Count 257 thou/uL (130-400)
[2021-04-20] MEDS: traMADol HCl 50 MG TAB PO PRN (08:44)
[2021-04-20] MEDS: Docusate 100 MG CAP PO SCH (08:46)
[2021-04-20] MEDS: Finasteride 5 MG TAB PO SCH (08:46)
[2021-04-20] MEDS: Multivit, Therapeutic 1 TAB PO SCH (08:46)
[2021-04-20] MEDS: Stress 600 With Zinc 1 TAB PO SCH (08:46)
[2021-04-20] MEDS: Lisinopril 20 MG TAB PO SCH ×2 (08:46→21:19)
[2021-04-20] MEDS: Cyanocobalamin (Vitamin B-12) 1,000 MCG TAB PO SCH (08:46)
[2021-04-20] MEDS: Vit A,C & E/Lutein/Minerals Tablet PO SCH (08:46)
[2021-04-20] MEDS: Aspirin 81 mg Enteric Coated Tablet PO SCH (08:47)
[2021-04-20] MEDS: Tamsulosin HCl 0.4 MG CAP PO SCH ×2 (08:48→21:19)
[2021-04-20] MEDS: Lidocaine 5% Patch TD SCH (08:48)
[2021-04-20] MEDS: Folic Acid 1 MG TAB PO SCH (08:48)
[2021-04-20] MEDS: Polyethylene Glycol 3350 17 GM Packet PO SCH (08:49)
[2021-04-20] MEDS: Rosuvastatin 10 MG TAB PO SCH (21:19)
[2021-04-20] MEDS: Transdermal Patch Removal TOP SCH (21:30)
[2021-04-20] MEDS: Acetaminophen 325 MG TAB PO PRN (22:02)
[2021-04-21] MEDS: Polyethylene Glycol 3350 17 GM Packet PO SCH (09:06)
[2021-04-21] MEDS: Lidocaine 5% Patch TD SCH (09:09)
[2021-04-21] MEDS: Multivit, Therapeutic 1 TAB PO SCH (09:10)
[2021-04-21] MEDS: Cyanocobalamin (Vitamin B-12) 1,000 MCG TAB PO SCH (09:10)
[2021-04-21] MEDS: Folic Acid 1 MG TAB PO SCH (09:10)
[2021-04-21] MEDS: Docusate 100 MG CAP PO SCH (09:10)
[2021-04-21] MEDS: Tamsulosin HCl 0.4 MG CAP PO SCH ×2 (09:10→20:48)
[2021-04-21] MEDS: Finasteride 5 MG TAB PO SCH (09:10)
[2021-04-21] MEDS: Aspirin 81 mg Enteric Coated Tablet PO SCH (09:10)
[2021-04-21] MEDS: Stress 600 With Zinc 1 TAB PO SCH (09:10)
[2021-04-21] MEDS: Vit A,C & E/Lutein/Minerals Tablet PO SCH (09:10)
[2021-04-21] MEDS: Lisinopril 10 MG TAB PO SCH ×2 (09:11→20:48)
[2021-04-21] MEDS: traMADol HCl 50 MG TAB PO PRN (09:18)
[2021-04-21] MEDS: Acetaminophen 325 MG TAB PO PRN (13:28)
[2021-04-21] MEDS: Rosuvastatin 10 MG TAB PO SCH (20:48)
[2021-04-21] MEDS: Transdermal Patch Removal TOP SCH (22:47)
[2021-04-22] MEDS: traMADol HCl 50 MG TAB PO PRN ×2 (05:41→21:20)
[2021-04-22] MEDS: Lisinopril 10 MG TAB PO SCH ×2 (09:00→21:20)
[2021-04-22] MEDS: Multivit, Therapeutic 1 TAB PO SCH (09:00)
[2021-04-22] MEDS: Stress 600 With Zinc 1 TAB PO SCH (09:00)
[2021-04-22] MEDS: Tamsulosin HCl 0.4 MG CAP PO SCH ×2 (09:01→21:20)
[2021-04-22] MEDS: Vit A,C & E/Lutein/Minerals Tablet PO SCH (09:01)
[2021-04-22] MEDS: Folic Acid 1 MG TAB PO SCH (09:01)
[2021-04-22] MEDS: Finasteride 5 MG TAB PO SCH (09:01)
[2021-04-22] MEDS: Lidocaine 5% Patch TD SCH (09:02)
[2021-04-22] MEDS: Docusate 100 MG CAP PO SCH (09:02)
[2021-04-22] MEDS: Cyanocobalamin (Vitamin B-12) 1,000 MCG TAB PO SCH (09:02)
[2021-04-22] MEDS: Aspirin 81 mg Enteric Coated Tablet PO SCH (09:02)
[2021-04-22] MEDS: Polyethylene Glycol 3350 17 GM Packet PO SCH (09:03)
[2021-04-22] MEDS: Rosuvastatin 10 MG TAB PO SCH (21:19)
[2021-04-22] MEDS: Acetaminophen 325 MG TAB PO PRN (21:19)
[2021-04-22] MEDS: Transdermal Patch Removal TOP SCH (21:47)
[2021-04-23 04:54] LABS: Hemoglobin 11.6 g/dL (14.0-18.0); Platelet Count 247 thou/uL (130-400)
[2021-04-23] MEDS: Cyanocobalamin (Vitamin B-12) 1,000 MCG TAB PO SCH (10:02)
[2021-04-23] MEDS: Stress 600 With Zinc 1 TAB PO SCH ×2 (10:02→10:03)
[2021-04-23] MEDS: Finasteride 5 MG TAB PO SCH (10:02)
[2021-04-23] MEDS: Vit A,C & E/Lutein/Minerals Tablet PO SCH ×2 (10:03→10:04)
[2021-04-23] MEDS: Docusate 100 MG CAP PO SCH (10:03)
[2021-04-23] MEDS: Folic Acid 1 MG TAB PO SCH (10:03)
[2021-04-23] MEDS: Lisinopril 10 MG TAB PO SCH ×2 (10:04→21:04)
[2021-04-23] MEDS: Polyethylene Glycol 3350 17 GM Packet PO SCH (10:05)
[2021-04-23] MEDS: Multivit, Therapeutic 1 TAB PO SCH (10:05)
[2021-04-23] MEDS: Lidocaine 5% Patch TD SCH (10:05)
[2021-04-23] MEDS: Aspirin 81 mg Enteric Coated Tablet PO SCH (10:05)
[2021-04-23] MEDS: Tamsulosin HCl 0.4 MG CAP PO SCH ×2 (10:06→21:04)
[2021-04-23] MEDS: Acetaminophen 325 MG TAB PO PRN ×2 (10:12→21:06)
[2021-04-23] MEDS: traMADol HCl 50 MG TAB PO PRN ×2 (10:13→17:39)
[2021-04-23] MEDS: Rosuvastatin 10 MG TAB PO SCH (21:04)
[2021-04-23] MEDS: Transdermal Patch Removal TOP SCH (21:07)
[2021-04-24] MEDS: Acetaminophen 325 MG TAB PO PRN (05:23)
[2021-04-24] MEDS: traMADol HCl 50 MG TAB PO PRN ×2 (09:28→23:02)
[2021-04-24] MEDS: Folic Acid 1 MG TAB PO SCH (09:30)
[2021-04-24] MEDS: Tamsulosin HCl 0.4 MG CAP PO SCH ×2 (09:31→20:41)
[2021-04-24] MEDS: Docusate 100 MG CAP PO SCH (09:31)
[2021-04-24] MEDS: Multivit, Therapeutic 1 TAB PO SCH (09:31)
[2021-04-24] MEDS: Finasteride 5 MG TAB PO SCH (09:31)
[2021-04-24] MEDS: Aspirin 81 mg Enteric Coated Tablet PO SCH (09:31)
[2021-04-24] MEDS: Cyanocobalamin (Vitamin B-12) 1,000 MCG TAB PO SCH (09:31)
[2021-04-24] MEDS: Polyethylene Glycol 3350 17 GM Packet PO SCH (09:32)
[2021-04-24] MEDS: Lidocaine 5% Patch TD SCH (09:32)
[2021-04-24] MEDS: Lisinopril 10 MG TAB PO SCH ×2 (09:41→20:41)
[2021-04-24] MEDS: Acetaminophen 325 MG TAB PO SCH ×5 (12:48→23:02)
[2021-04-24] MEDS: Rosuvastatin 10 MG TAB PO SCH (20:42)
[2021-04-24] MEDS: Transdermal Patch Removal TOP SCH (20:42)
[2021-04-25] MEDS: Acetaminophen 325 MG TAB PO SCH ×3 (05:28→17:59)
[2021-04-25] MEDS: Lisinopril 10 MG TAB PO SCH ×2 (09:18→21:43)
[2021-04-25] MEDS: Vit A,C & E/Lutein/Minerals Tablet PO SCH (09:18)
[2021-04-25] MEDS: Stress 600 With Zinc 1 TAB PO SCH (09:18)
[2021-04-25] MEDS: Multivit, Therapeutic 1 TAB PO SCH (09:18)
[2021-04-25] MEDS: Finasteride 5 MG TAB PO SCH (09:18)
[2021-04-25] MEDS: Docusate 100 MG CAP PO SCH (09:18)
[2021-04-25] MEDS: Aspirin 81 mg Enteric Coated Tablet PO SCH (09:19)
[2021-04-25] MEDS: Cyanocobalamin (Vitamin B-12) 1,000 MCG TAB PO SCH (09:19)
[2021-04-25] MEDS: Tamsulosin HCl 0.4 MG CAP PO SCH ×2 (09:20→21:43)
[2021-04-25] MEDS: Lidocaine 5% Patch TD SCH (09:20)
[2021-04-25] MEDS: Folic Acid 1 MG TAB PO SCH (09:20)
[2021-04-25] MEDS: Polyethylene Glycol 3350 17 GM Packet PO SCH (09:21)
[2021-04-25] MEDS: Rosuvastatin 10 MG TAB PO SCH (21:43)
[2021-04-25] MEDS: Transdermal Patch Removal TOP SCH (21:44)
[2021-04-26] MEDS: Acetaminophen 325 MG TAB PO SCH ×4 (00:24→16:49)
[2021-04-26] MEDS: traMADol HCl 50 MG TAB PO PRN ×2 (05:01→16:49)
[2021-04-26 05:29] LABS: Hemoglobin 12.3 g/dL (14.0-18.0); Platelet Count 230 thou/uL (130-400)
[2021-04-26] MEDS: Cyanocobalamin (Vitamin B-12) 1,000 MCG TAB PO SCH (08:37)
[2021-04-26] MEDS: Vit A,C & E/Lutein/Minerals Tablet PO SCH (08:38)
[2021-04-26] MEDS: Multivit, Therapeutic 1 TAB PO SCH (08:38)
[2021-04-26] MEDS: Aspirin 81 mg Enteric Coated Tablet PO SCH (08:38)
[2021-04-26] MEDS: Lisinopril 10 MG TAB PO SCH ×2 (08:38→20:47)
[2021-04-26] MEDS: Tamsulosin HCl 0.4 MG CAP PO SCH ×2 (08:38→20:41)
[2021-04-26] MEDS: Lidocaine 5% Patch TD SCH (08:39)
[2021-04-26] MEDS: Finasteride 5 MG TAB PO SCH (08:39)
[2021-04-26] MEDS: Stress 600 With Zinc 1 TAB PO SCH (08:39)
[2021-04-26] MEDS: Folic Acid 1 MG TAB PO SCH (08:39)
[2021-04-26] MEDS: Docusate 100 MG CAP PO SCH (08:43)
[2021-04-26] MEDS: Polyethylene Glycol 3350 17 GM Packet PO SCH (08:43)
[2021-04-26] MEDS: Transdermal Patch Removal TOP SCH (20:41)
[2021-04-26] MEDS: Rosuvastatin 10 MG TAB PO SCH (20:41)
[2021-04-27] MEDS: Acetaminophen 325 MG TAB PO SCH ×4 (00:08→18:04)
[2021-04-27] MEDS: traMADol HCl 50 MG TAB PO PRN ×2 (08:57→15:14)
[2021-04-27] MEDS: Lidocaine 5% Patch TD SCH (08:59)
[2021-04-27] MEDS: Polyethylene Glycol 3350 17 GM Packet PO SCH (09:00)
[2021-04-27] MEDS: Finasteride 5 MG TAB PO SCH (09:00)
[2021-04-27] MEDS: Vit A,C & E/Lutein/Minerals Tablet PO SCH (09:00)
[2021-04-27] MEDS: Multivit, Therapeutic 1 TAB PO SCH (09:00)
[2021-04-27] MEDS: Stress 600 With Zinc 1 TAB PO SCH (09:00)
[2021-04-27] MEDS: Aspirin 81 mg Enteric Coated Tablet PO SCH (09:00)
[2021-04-27] MEDS: Tamsulosin HCl 0.4 MG CAP PO SCH ×2 (09:00→20:45)
[2021-04-27] MEDS: Docusate 100 MG CAP PO SCH (09:01)
[2021-04-27] MEDS: Lisinopril 10 MG TAB PO SCH (09:01)
[2021-04-27] MEDS: Cyanocobalamin (Vitamin B-12) 1,000 MCG TAB PO SCH (09:01)
[2021-04-27 14:42] LABS: SARS-CoV-2 PCR by NAA Not Detected (NotDetected)
[2021-04-27] MEDS: Rosuvastatin 10 MG TAB PO SCH (20:44)
[2021-04-27] MEDS: Transdermal Patch Removal TOP SCH (20:46)
[2021-04-28] MEDS: Acetaminophen 325 MG TAB PO SCH ×3 (00:24→12:17)
[2021-04-28 05:36] VITALS: BP 106/60; TEMP 98
[2021-04-28] MEDS: Multivit, Therapeutic 1 TAB PO SCH (08:15)
[2021-04-28] MEDS: Stress 600 With Zinc 1 TAB PO SCH (08:15)
[2021-04-28] MEDS: Vit A,C & E/Lutein/Minerals Tablet PO SCH (08:15)
[2021-04-28] MEDS: Finasteride 5 MG TAB PO SCH (08:16)
[2021-04-28] MEDS: Polyethylene Glycol 3350 17 GM Packet PO SCH (08:17)
[2021-04-28] MEDS: Docusate 100 MG CAP PO SCH (08:17)
[2021-04-28] MEDS: Tamsulosin HCl 0.4 MG CAP PO SCH (08:17)
[2021-04-28] MEDS: Aspirin 81 mg Enteric Coated Tablet PO SCH (08:17)
[2021-04-28] MEDS: Cyanocobalamin (Vitamin B-12) 1,000 MCG TAB PO SCH (08:18)
[2021-04-28] MEDS: Folic Acid 1 MG TAB PO SCH (08:18)
[2021-04-28] MEDS: Lidocaine 5% Patch TD SCH (08:23)
[2021-04-28] MEDS: traMADol HCl 50 MG TAB PO PRN (12:18)
== END 2021-04-28 13:45 | disposition home or self-care (01) | DRG 948 ==
LOC: BURMED 04-08 01:44
PROVIDERS: ADMIT Family Medicine; ATTEND Family Medicine
DX: R53.81 Other malaise (principal); N17.9 Acute kidney failure, unspecified; M19.90 Unspecified osteoarthritis, unspecified site; I10 Essential (primary) hypertension; Z96.651 Presence of right artificial knee joint; W19.XXXD Unspecified fall, subsequent encounter; R31.9 Hematuria, unspecified; R33.9 Retention of urine, unspecified; N20.0 Calculus of kidney; G89.29 Other chronic pain; M54.9 Dorsalgia, unspecified; E78.5 Hyperlipidemia, unspecified; Z86.73 Personal history of transient ischemic attack (TIA), and cerebral infarction without residual deficits; Z90.49 Acquired absence of other specified parts of digestive tract; Z87.891 Personal history of nicotine dependence; Z88.8 Allergy status to other drugs, medicaments and biological substances; Z79.82 Long term (current) use of aspirin; Z79.899 Other long term (current) drug therapy; S32.501D Unspecified fracture of right pubis, subsequent encounter for fracture with routine healing; S32.591D Other specified fracture of right pubis, subsequent encounter for fracture with routine healing; Z20.822 Contact with and (suspected) exposure to COVID-19
CPT/HCPCS: 36415; 85014; 85018; 85025; 85049; J2060; U0003; U0005

== ENCOUNTER 2021-05-03 08:48 | Emergency (ER) | payer MEDICARE | END 2021-05-03 10:14 | disposition home or self-care (01) | LOC: BURERS 08:48 | DX: R33.9 Retention of urine, unspecified (principal); I10 Essential (primary) hypertension; E78.5 Hyperlipidemia, unspecified | CPT/HCPCS: 51701; 51798 ==

== ENCOUNTER 2021-07-22 22:33 | Emergency (ER) | payer MEDICARE | END 2021-07-22 23:03 | disposition home or self-care (01) | LOC: BURERS 22:33 | DX: T83.091A Other mechanical complication of indwelling urethral catheter, initial encounter (principal); I10 Essential (primary) hypertension; E78.5 Hyperlipidemia, unspecified; Z86.73 Personal history of transient ischemic attack (TIA), and cerebral infarction without residual deficits; Z79.82 Long term (current) use of aspirin; Z79.02 Long term (current) use of antithrombotics/antiplatelets; Z79.01 Long term (current) use of anticoagulants; Z79.899 Other long term (current) drug therapy | CPT/HCPCS: 99283 ==

== ENCOUNTER 2021-11-17 15:54 | Emergency (ER) | payer MEDICARE | END 2021-11-17 17:50 | disposition home or self-care (01) | LOC: BURERS 15:54 | DX: T83.098A Other mechanical complication of other urinary catheter, initial encounter (principal); I10 Essential (primary) hypertension; E78.5 Hyperlipidemia, unspecified; Z86.73 Personal history of transient ischemic attack (TIA), and cerebral infarction without residual deficits | CPT/HCPCS: 51705 ==

== ENCOUNTER 2021-11-19 17:22 | Inpatient (IN) | payer MEDICARE ==
[2021-11-19 17:57] LABS: #Eosinphils 0.1 thou/uL (0.0-0.7); #Lymphocytes 1.5 thou/uL (1.20-3.40); #Monocytes 0.8 thou/uL (0.11-0.59); #Neutrophils 6.1 thou/uL (1.40-6.50); %Basophils 0.4 % (0.0-1.0); %Eosinophils 1.1 % (0.0-10.0); %Lymphocytes 17.3 % (21.0-51.0); %Monocytes 9.1 % (0.0-10.0); %Neutrophils 72.1 % (42.0-75.0); Hemoglobin 13.8 g/dL (14.0-18.0); Mean Corpuscular HGB CONC 33.3 g/dL (32.0-36.0); Mean Corpuscular Hemoglobin 29.4 pg (27.0-31.0); Mean Corpuscular Volume 88.5 fL (78.0-98.0); Mean Platelet Volume 6.8 fL (7.4-10.4); Platelet Count 193 thou/uL (130-400); RBC Distribution Width 13.6 % (11.5-14.5); Red Blood Cell (RBC) Count 4.68 mill/uL (4.70-6.10); White Blood Cell (WBC) Count 8.5 thou/uL (4.8-10.8)
[2021-11-19 17:59] LABS: Bilirubin Negative (Negative); Blood, Urine Moderate (Negative); Clarity Cloudy (Clear); Glucose, Urine (Dipstick) Negative (Negative); Ketone, Urine Negative (Negative); Leukocyte Moderate (Negative); Nitrite Positive (Negative); Protein, Urine (Dipstick) 100 mg/dL (Neg-Trace); Specific Gravity, Urine 1.025 (1.005-1.030); Urobilinogen 0.2 mg/dL (Less than 2); pH, Urine 5.5 (5.0-9.0)
[2021-11-19 18:04] LABS: Bacteria/HPF 3+ HPF (None Seen); Mucous/LPF 1+ LPF (<2+); Squamous Epithelial 0-3 HPF (0-3); WBC/HPF 21-50 HPF (0-3)
[2021-11-19 18:04] LABS: ALT (SGPT) 15 U/L (8-55); AST (SGOT) 15 U/L (5-34); Albumin 3.8 g/dL (3.4-4.8); Alkaline Phosphatase 48 U/L (40-110); Anion Gap 15 mmol/L (10-20); BUN (Urea Nitrogen) 34 mg/dL (8.4-25.7); Bilirubin, Total 0.7 mg/dL (0.2-1.2); Calc. Creatinine Clearance 0 mL/min (70-130); Calcium 9.2 mg/dL (7.8-10.44); Carbon Dioxide 23 mmol/L (23-31); Chloride 107 mmol/L (98-107); Glucose 150 mg/dL (83-110); Potassium 4.1 mmol/L (3.5-5.1); Protein, Total 6.8 g/dL (5.8-8.1); Sodium 141 mmol/L (136-145)
[2021-11-19] MEDS ORDERED: Acetaminophen 500 MG TAB ONE (18:48)
[2021-11-19] MEDS ORDERED: Ondansetron PF 4 MG/2 ML Vial ONE (19:01)
[2021-11-19 20:19] VITALS: BMI 26.2
[2021-11-19] MEDS ORDERED: Ondansetron ODT 4 MG TAB SL PRN (21:15)
[2021-11-19] MEDS ORDERED: Ondansetron PF 4 MG/2 ML Vial IVP PRN (21:15)
[2021-11-19] MEDS: Dextrose 5 %-0.45 % NaCl 1,000 ML IV SCH (21:48)
[2021-11-19 23:24] LABS: SARS-CoV-2 NAA Rapid Test Not Detected (NotDetected)
[2021-11-20] MEDS: Dextrose 5 %-0.45 % NaCl 1,000 ML IV SCH (06:06)
[2021-11-20] MEDS ORDERED: Tamsulosin HCl 0.4 MG CAP PO SCH (09:00)
[2021-11-20] MEDS: Multivit, Therapeutic 1 TAB PO SCH (09:25)
[2021-11-20] MEDS: Finasteride 5 MG TAB PO SCH (09:25)
[2021-11-20] MEDS: Stress 600 With Zinc 1 TAB PO SCH (09:26)
[2021-11-20] MEDS: Aspirin 81 mg Enteric Coated Tablet PO SCH (09:26)
[2021-11-20] MEDS: Docusate 100 MG CAP PO SCH (09:26)
[2021-11-20] MEDS: Vit A,C & E/Lutein/Minerals Tablet PO SCH (09:26)
[2021-11-20] MEDS: Polyethylene Glycol 3350 17 GM Packet PO SCH (09:26)
[2021-11-20] MEDS: Folic Acid 1 MG TAB PO SCH (09:26)
[2021-11-20] MEDS: Cyanocobalamin (Vitamin B-12) 1,000 MCG TAB PO SCH (09:26)
[2021-11-20] MEDS: Multivitamin W/ Minerals 1 TAB PO SCH (09:26)
[2021-11-20] MEDS: Acetaminophen 325 MG TAB PO PRN (16:32)
[2021-11-20] MEDS: Rosuvastatin 10 MG TAB PO SCH (19:49)
[2021-11-20] MEDS: Tamsulosin HCl 0.4 MG CAP PO SCH (19:50)
[2021-11-20] MEDS: traMADol HCl 50 MG TAB PO PRN (19:50)
[2021-11-20] MEDS: Enoxaparin Sodium 40 MG/0.4 ML SYRINGE SC SCH (19:51)
[2021-11-21] MEDS: Acetaminophen 325 MG TAB PO PRN ×2 (00:27→10:09)
[2021-11-21] MEDS ORDERED: traMADol HCl 50 MG TAB ONE (03:10)
[2021-11-21] MEDS: Aspirin 81 mg Enteric Coated Tablet PO SCH (10:07)
[2021-11-21] MEDS: Cyanocobalamin (Vitamin B-12) 1,000 MCG TAB PO SCH (10:07)
[2021-11-21] MEDS: Multivit, Therapeutic 1 TAB PO SCH (10:07)
[2021-11-21] MEDS: Multivitamin W/ Minerals 1 TAB PO SCH (10:08)
[2021-11-21] MEDS: Vit A,C & E/Lutein/Minerals Tablet PO SCH (10:08)
[2021-11-21] MEDS: Docusate 100 MG CAP PO SCH (10:08)
[2021-11-21] MEDS: Folic Acid 1 MG TAB PO SCH (10:08)
[2021-11-21] MEDS: Finasteride 5 MG TAB PO SCH (10:08)
[2021-11-21] MEDS: traMADol HCl 50 MG TAB PO PRN ×2 (10:08→20:54)
[2021-11-21] MEDS: Stress 600 With Zinc 1 TAB PO SCH (10:08)
[2021-11-21] MEDS: Polyethylene Glycol 3350 17 GM Packet PO SCH (10:09)
[2021-11-21] MEDS ORDERED: Polyethylene Glycol OPTH DROP 15 ML BOT EA EYE PRN (10:27)
[2021-11-21] MEDS: Rosuvastatin 10 MG TAB PO SCH (20:55)
[2021-11-21] MEDS: Tamsulosin HCl 0.4 MG CAP PO SCH (20:56)
[2021-11-21] MEDS: Enoxaparin Sodium 40 MG/0.4 ML SYRINGE SC SCH (22:03)
[2021-11-22] MEDS: traMADol HCl 50 MG TAB PO PRN (03:55)
[2021-11-22] MEDS: Cyanocobalamin (Vitamin B-12) 1,000 MCG TAB PO SCH (09:46)
[2021-11-22] MEDS: Stress 600 With Zinc 1 TAB PO SCH (09:46)
[2021-11-22] MEDS: Folic Acid 1 MG TAB PO SCH (09:46)
[2021-11-22] MEDS: Multivit, Therapeutic 1 TAB PO SCH (09:46)
[2021-11-22] MEDS: Finasteride 5 MG TAB PO SCH (09:46)
[2021-11-22] MEDS: Multivitamin W/ Minerals 1 TAB PO SCH (09:46)
[2021-11-22] MEDS: Docusate 100 MG CAP PO SCH (09:46)
[2021-11-22] MEDS: Vit A,C & E/Lutein/Minerals Tablet PO SCH (09:46)
[2021-11-22] MEDS: Aspirin 81 mg Enteric Coated Tablet PO SCH (09:46)
[2021-11-22] MEDS: Polyethylene Glycol 3350 17 GM Packet PO SCH (09:47)
[2021-11-22] MEDS: Enoxaparin Sodium 40 MG/0.4 ML SYRINGE SC SCH (20:57)
[2021-11-22] MEDS: Tamsulosin HCl 0.4 MG CAP PO SCH (20:58)
[2021-11-22] MEDS: Rosuvastatin 10 MG TAB PO SCH (20:58)
[2021-11-22] MEDS: Nitrofurantoin Monohyd/M-Cryst 100 MG CAP PO SCH (23:08)
[2021-11-23 04:40] VITALS: BP 109/49; TEMP 98.5
[2021-11-23] MEDS ORDERED: Sodium Chloride 0.9% 500 ML IV SCH (07:00)
[2021-11-23] MEDS: Polyethylene Glycol 3350 17 GM Packet PO SCH (08:17)
[2021-11-23] MEDS: Stress 600 With Zinc 1 TAB PO SCH (08:18)
[2021-11-23] MEDS: Finasteride 5 MG TAB PO SCH (08:18)
[2021-11-23] MEDS: Multivitamin W/ Minerals 1 TAB PO SCH (08:18)
[2021-11-23] MEDS: Nitrofurantoin Monohyd/M-Cryst 100 MG CAP PO SCH (08:18)
[2021-11-23] MEDS: Vit A,C & E/Lutein/Minerals Tablet PO SCH (08:18)
[2021-11-23] MEDS: Docusate 100 MG CAP PO SCH (08:18)
[2021-11-23] MEDS: Multivit, Therapeutic 1 TAB PO SCH (08:18)
[2021-11-23] MEDS: Aspirin 81 mg Enteric Coated Tablet PO SCH (08:18)
[2021-11-23] MEDS: Folic Acid 1 MG TAB PO SCH (08:18)
[2021-11-23] MEDS: Cyanocobalamin (Vitamin B-12) 1,000 MCG TAB PO SCH (08:18)
[2021-11-23] MEDS: traMADol HCl 50 MG TAB PO PRN (11:09)
[2021-11-23 11:24] LABS: Bilirubin Negative (Negative); Blood, Urine Moderate (Negative); Clarity Clear (Clear); Glucose, Urine (Dipstick) Negative (Negative); Ketone, Urine Negative (Negative); Leukocyte Moderate (Negative); Nitrite Positive (Negative); Protein, Urine (Dipstick) Negative (Neg-Trace); Urobilinogen 0.2 mg/dL (Less than 2); pH, Urine 7.5 (5.0-9.0)
[2021-11-23 11:35] LABS: Bacteria/HPF Rare-Few HPF (None Seen); Squamous Epithelial 0-3 HPF (0-3)
[2021-11-23 11:36] LABS: Urine Culture Reflex Yes Yes
[2021-11-26] MEDS ORDERED: TESTOSTERONE CYPIONATE IM SCH (09:00)
== END 2021-11-23 12:20 | disposition home or self-care (01) | DRG 699 ==
LOC: BURERS 17:22 → BURMED 19:58
PROVIDERS: ADMIT Family Medicine; ATTEND Family Medicine
DX: T83.510A Infection and inflammatory reaction due to cystostomy catheter, initial encounter (principal); N39.0 Urinary tract infection, site not specified; I10 Essential (primary) hypertension; E78.5 Hyperlipidemia, unspecified; Z96.651 Presence of right artificial knee joint; N20.0 Calculus of kidney; E86.0 Dehydration; N40.0 Benign prostatic hyperplasia without lower urinary tract symptoms; R53.81 Other malaise; Z20.822 Contact with and (suspected) exposure to COVID-19; M19.90 Unspecified osteoarthritis, unspecified site; Z86.73 Personal history of transient ischemic attack (TIA), and cerebral infarction without residual deficits; Z90.49 Acquired absence of other specified parts of digestive tract; Z98.890 Other specified postprocedural states; Z88.1 Allergy status to other antibiotic agents; Z87.891 Personal history of nicotine dependence; Z79.899 Other long term (current) drug therapy; Z79.82 Long term (current) use of aspirin; Y83.8 Other surgical procedures as the cause of abnormal reaction of the patient, or of later complication, without mention of misadventure at the time of the procedure
CPT/HCPCS: 71045; 74176; 80053; 81001; 81003; 81015; 83605; 85025; 87040; 87077; 87086; 87149; 87804; 96374; J1650; J1956; J2405; J7042; Q0162; U0002

== ENCOUNTER 2021-11-30 23:45 | Emergency (ER) | payer MEDICARE ==
[2021-12-01 01:00] LABS: #Eosinphils 0.1 thou/uL (0.0-0.7); #Lymphocytes 0.7 thou/uL (1.20-3.40); #Monocytes 0.4 thou/uL (0.11-0.59); #Neutrophils 6.3 thou/uL (1.40-6.50); %Basophils 0.4 % (0.0-1.0); %Eosinophils 1.8 % (0.0-10.0); %Lymphocytes 9.5 % (21.0-51.0); %Monocytes 5.3 % (0.0-10.0); Hemoglobin 14.1 g/dL (14.0-18.0); Mean Corpuscular HGB CONC 34.4 g/dL (32.0-36.0); Mean Corpuscular Hemoglobin 29.6 pg (27.0-31.0); Mean Corpuscular Volume 86.1 fL (78.0-98.0); Platelet Count 275 thou/uL (130-400); Red Blood Cell (RBC) Count 4.74 mill/uL (4.70-6.10); White Blood Cell (WBC) Count 7.5 thou/uL (4.8-10.8)
[2021-12-01 01:12] LABS: ALT (SGPT) 14 U/L (8-55); AST (SGOT) 14 U/L (5-34); Albumin 3.7 g/dL (3.4-4.8); Alkaline Phosphatase 46 U/L (40-110); Anion Gap 15 mmol/L (10-20); BUN (Urea Nitrogen) 31 mg/dL (8.4-25.7); Bilirubin, Total 0.7 mg/dL (0.2-1.2); Calc. Creatinine Clearance 0 mL/min (70-130); Calcium 9.2 mg/dL (7.8-10.44); Carbon Dioxide 23 mmol/L (23-31); Chloride 105 mmol/L (98-107); Globulin 3.4 g/dL (2.4-3.5); Glucose 147 mg/dL (83-110); Potassium 4.2 mmol/L (3.5-5.1); Protein, Total 7.1 g/dL (5.8-8.1); Sodium 139 mmol/L (136-145)
[2021-12-01 01:53] LABS: Bilirubin Negative (Negative); Blood, Urine Moderate (Negative); Clarity Slightly Cloudy (Clear); Glucose, Urine (Dipstick) Negative (Negative); Ketone, Urine Negative (Negative); Leukocyte Small (Negative); Nitrite Negative (Negative); Protein, Urine (Dipstick) 100 mg/dL (Neg-Trace); Urobilinogen 0.2 mg/dL (Less than 2)
[2021-12-01 02:09] LABS: Bacteria/HPF 1+ HPF (None Seen); Mucous/LPF 1+ LPF (<2+); Squamous Epithelial 0-3 HPF (0-3)
[2021-12-01 03:48] LABS: SARS-CoV-2 NAA Rapid Test Not Detected (NotDetected)
[2021-12-01] MEDS ORDERED: cefTRIAXone\\ROCEPHIN 1 GM VIAL ONE (06:04)
[2021-12-01] MEDS ORDERED: Sodium Chloride 0.9% 100 ML ONE (06:04)
== END 2021-12-01 08:40 | disposition short-term general hospital (02) ==
LOC: BURERS 23:45
DX: N39.0 Urinary tract infection, site not specified (principal); Z20.822 Contact with and (suspected) exposure to COVID-19; Z86.73 Personal history of transient ischemic attack (TIA), and cerebral infarction without residual deficits; Z79.82 Long term (current) use of aspirin; Z79.899 Other long term (current) drug therapy; E78.5 Hyperlipidemia, unspecified; I10 Essential (primary) hypertension
CPT/HCPCS: 71045; 80053; 83605; 84484; 85025; 87040; 87086; 87149 ×2; 93005; U0002; 36415; 81003; 81015; J0696; J1956; J3490

== ENCOUNTER 2022-03-13 12:08 | Emergency (ER) | payer MEDICARE ==
[2022-03-13] MEDS ORDERED: Ketorolac Tromethamine 30 MG/ML VIAL ONE (13:21)
== END 2022-03-13 13:27 | disposition home or self-care (01) ==
LOC: BURERS 12:08
DX: S20.212A Contusion of left front wall of thorax, initial encounter (principal); S40.012A Contusion of left shoulder, initial encounter; S00.83XA Contusion of other part of head, initial encounter; I10 Essential (primary) hypertension; E78.5 Hyperlipidemia, unspecified; Z86.73 Personal history of transient ischemic attack (TIA), and cerebral infarction without residual deficits; W19.XXXA Unspecified fall, initial encounter
CPT/HCPCS: 70450; 71045; 96372; J1885

== ENCOUNTER 2022-06-01 15:40 | Emergency (ER) | payer MEDICARE ==
[2022-06-01] MEDS ORDERED: Clindamycin 150 MG CAP ONE (16:14)
== END 2022-06-01 16:20 | disposition home or self-care (01) ==
LOC: BURERS 15:40
DX: M79.675 Pain in left toe(s) (principal)
CPT/HCPCS: 99283

== ENCOUNTER 2024-04-21 07:40 | Emergency (ER) | payer MEDICARE ==
[2024-04-21] MEDS ORDERED: Acetaminophen 500 MG TAB ONE (08:14)
[2024-04-21] MEDS ORDERED: traMADol HCl 50 MG TAB ONE (08:23)
[2024-04-21 08:36] LABS: #Eosinophils 0.1 thou/uL (0.0-0.7); #Lymphocytes 1.9 thou/uL (1.20-3.40); #Monocytes 0.6 thou/uL (0.11-0.59); %Basophils 0.5 % (0.0-1.0); %Eosinophils 1.3 % (0.0-10.0); %Lymphocytes 19.5 % (21.0-51.0); %Monocytes 6.4 % (0.0-10.0); %Neutrophils 72.4 % (42.0-75.0); Hemoglobin 14.3 g/dL (14.0-18.0); Mean Corpuscular HGB CONC 33.2 g/dL (32.0-36.0); Mean Corpuscular Hemoglobin 31.2 pg (27.0-31.0); Mean Corpuscular Volume 93.7 fl (78.0-98.0); Platelet Count 292 10x3/uL (130-400); RBC Distribution Width 11.6 % (11.5-14.5); Red Blood Cell (RBC) Count 4.59 mill/uL (4.70-6.10); White Blood Cell (WBC) Count 9.7 10x3/uL (4.8-10.8)
[2024-04-21 08:47] LABS: ALT (SGPT) 13 U/L (8-55); AST (SGOT) 14 U/L (5-34); Albumin 3.8 g/dL (3.4-4.8); Alkaline Phosphatase 40 U/L (40-110); Anion Gap 13 mmol/L (10-20); BUN (Urea Nitrogen) 26 mg/dL (8.4-25.7); Bilirubin, Total 0.5 mg/dL (0.2-1.2); Calc. Creatinine Clearance 0 mL/min (70-130); Calcium 10.5 mg/dL (7.8-10.44); Carbon Dioxide 29 mmol/L (23-31); Chloride 104 mmol/L (98-107); Estimated GFR 48; Globulin 3.2 g/dL (2.4-3.5); Glucose 159 mg/dL (83-110); Potassium 4.3 mmol/L (3.5-5.1); Sodium 142 mmol/L (136-145)
[2024-04-21 08:50] LABS: PTT 26.7 sec (22.9-36.1); Prothrombin Time 12.7 sec (12.0-14.7)
== END 2024-04-21 10:28 | disposition home or self-care (01) ==
LOC: BURERS 07:40
DX: S39.012A Strain of muscle, fascia and tendon of lower back, initial encounter (principal); I10 Essential (primary) hypertension; Z55.6 Problems related to health literacy; Z79.899 Other long term (current) drug therapy; Z86.73 Personal history of transient ischemic attack (TIA), and cerebral infarction without residual deficits; W18.30XA Fall on same level, unspecified, initial encounter
CPT/HCPCS: 36415; 70450; 71045; 72125; 72128; 72131; 80053; 85025; 85610; 85730